=== PATIENT | female | born 1940 | race Caucasian/White ===

== ENCOUNTER → 2016-10-31 | Day surgery (SDC) | payer OTHER, BC ==
[2016-10-06 07:35] VITALS: Ht 156.2 cm; Wt 89.1 kg
[~2016-10-31] VITALS: Ht 156.2 cm; Wt 89.1 kg
[~2016-10-31] MED LIST: 500ML BSS 0.3ML EPI 1:1000PF IRRIG ONE; ACETAMINOPHEN 325 MG TAB PO PRN; AMVISC PLUS 0.8ML SYRINGE INT OCU ONE; ATROPINE SULFATE 0.1 MG/ML 5ML SYR IV PRN; BSS FLUSH ONE; CALCTAB5 PO; EpHEDrine SULFATE INJ 50 MG/ML AMP IV PRN; EpINEphrine INJ 1MG/ML AMP 1 MG/ML AMP ONE; HYDR25TA4 PO; LACTATED RINGER'S 1000ML 500 ML IV SCH; LIDOCAINE 3.5% OPH GEL PER APPLICATION CHARGE ONE; LIDOCAINE HCL 1% MPF 2 ML VIAL ONE; MIDAZOLAM HCL 1 MG/ML 2ML VIAL ONE; MISCTAB88; MULT-845; OCUCOAT 1 ML SOLN IO ONE; ONDANSETRON INJ 2 MG/ML 2 ML VIAL IV PRN; POVIDONE-IODINE OP SOLN 30 ML BTL ONE; PROPARACAINE 0.5% OP SOLN PER DROP CHARGE OPR SCH; TAMO20TA47 PO; TOBRAMYCIN/DEXAMETHASONE OPH OINT PER APPLN CHARGE ONE
[2016-10-31] MEDS: PHENYLEPHRINE HCL 2.5% OP SOLN PER DROP CHARGE OPR SCH ×2 (08:05→08:10)
[2016-10-31] MEDS: TROPICAMIDE 1% OP SOLN PER DROP CHARGE OPR SCH ×2 (08:06→08:11)
[2016-10-31] MEDS: CYCLOPENTOLATE HCL 1% OP SOLN PER DROP CHARGE OPR SCH ×2 (08:07→08:12)
[2016-10-31] MEDS: KETOROLAC 0.5% OP SOLN PER DROP CHARGE OPR SCH ×2 (08:08→08:13)
[2016-10-31] MEDS: GATIFLOXACIN OP SOLN PER DROP CHARGE OPR SCH ×2 (08:09→08:24)
--- NOTE | 2016-10-31 08:45 | History & Physical Bridge - [place] ---
H&P Re-Evaluation Bridge Note: I have examined the patient, reviewed the History & Physical and in the interval since the performance of the History & Physical I have noted the following changes of clinical significance: No changes noted
--- NOTE | 2016-10-31 09:22 | Discharge Instructions-SurgCtr ---
Discharge Instructions Date of Service Oct 31, 2016. Visit Reason for Visit: Cataract Right Eye Discharge Discharge Diagnosis / Problem: cataract Discharge Goals Goal(s): Improve function Activity Recommendations Activity Limitations: per Instructions/Follow-up section Anesthesia . Post Anesthesia Instructions: If you have had General Anesthesia or IV Sedation: * Do not drive today. * Resume driving when surgeon permits. * Do not make important decisions or sign legal documents today. * Call surgeon for: 1. Temperature elevations greater than 101 degrees F. 2. Uncontrollable pain. 3. Excessive bleeding. 4. Persistent nausea and vomiting. 5. Medication intolerance (nausea, vomiting or rash). * For nausea and vomiting use only clear liquids such as: tea, soda, bouillon until nausea subsides, then gradually increase diet as tolerated. * If you have any concerns or questions, call your surgeon's office. If physician is unavailable and it is an emergency, call 911 or go to the nearest emergency room. . Instructions / Follow-Up Instructions / Follow-Up ACTIVITY RECOMMENDATIONS: * No strenuous lifting, jogging or running for 4 days * No swimming or yard work for 1 week. * Limited bending is permitted, such as putting on shoes. RETURN TO SCHOOL/WORK: No work until seen by physician in office. MEDICATIONS: Resume previous medications unless instructed otherwise by your surgeon. This includes eye drops for glaucoma. Zymaxid/Gatifloxacin (de la o cap) - one drop every 2 hours until bedtime Nevanac/Ilevro/Prolensa/Ketorolac (neal cap) - one drop every 4 hours until bedtime Prednisolone/Durezol (white/pink cap, SHAKE WELL) - one drop every 2 hours until bedtime Starting tomorrow - all 3 drops every 4 hours until seen in the office Optive drops - as needed for discomfort SPECIAL CARE INSTRUCTIONS: * Wear eyeshield when sleeping, for four nights. * You may wear your own glasses or sunglasses while awake. * You may read or watch TV * You may shower and wash your face, but be gentle around the eye and pat dry. * Blurry vision and mild irritation are normal. * Call office if pain is more severe or vision becomes dark at . FOLLOW UP VISIT: Follow-up with Dr Benson tomorrow. Diet Recommendations Home Diet: resume previous diet Procedures Procedures Performed: Right Cataract Phacoemulsification With Intraocular Lens Implant Pending Studies Studies pending at discharge: no Medical Emergencies . Who to Call and When: Medical Emergencies: If at any time you feel your situation is an emergency, please call 911 immediately. . Non-Emergent Contact Non-Emergency issues call your: Electronic Heat Seal Operator . . "Provider Documentation" section prepared by Theodore Benson. .
--- NOTE | 2016-10-31 09:22 | [facility] Operative Report ---
Operative Report Date of Service Oct 31, 2016. Operative Report 1. PREOPERATIVE DIAGNOSIS: Cataract of the right eye. 2. POSTOPERATIVE DIAGNOSIS: Same. 3. PROCEDURE: Phacoemulsification with intraocular lens implantation of the right eye. SURGEON: Dr. Theodore Benson. ANESTHESIA: Topical Lidocaine gel, 1% Non- Preserved intracameral Lidocaine, and monitored intravenous sedation. INDICATIONS FOR THE PROCEDURE: The patient is a 76 - year-old female with a history of cataract of the right eye causing significant visual impairment. The details of the proposed procedure were explained to the patient who asked appropriate questions and following discussion of all risks, benefits and alternatives agreed to have the procedure done. 4. OPERATION AND FINDINGS: DESCRIPTION OF PROCEDURE: After informed consent was obtained, the patient was brought to the Operating Room at the [facility]. The patient was placed in a supine position and then the right eye was prepped and draped in the usual sterile fashion for intraocular surgery. A drop of topical Lidocaine gel was placed in the operative eye. A wire lid speculum was then placed in the fornices. A corneal paracentesis was then created temporally. The Non-Preserved Lidocaine was then instilled into the anterior chamber. The anterior chamber was then pressurized with viscoelastic. A 2.0 mm clear corneal incision was then created temporally. A cystotome was inserted into the anterior chamber and used to create a tear in the anterior lens capsule. This capsular tear was then used to create a small flap and the flap was dragged in a counterclockwise direction in order to create a continuous curvilinear capsulorrhexis. Hydrodissection was accomplished with balanced salt solution. Phacoemulsification of the lens nucleus was then performed in a standard iaczav-guu-[id number] technique. The phaco time was 31 seconds with an average power of 13 %. The remaining cortical material was removed using irrigation aspiration. The capsular bag was then filled with viscoelastic. A [employer]ch [employer] Lomb MI60L +22.5 diopters lens was then loaded into the injector and injected into the capsular bag. The remaining viscoelastic was removed with the irrigation aspiration handpiece. The wound was hydrated and then checked and found to be watertight. The intraocular pressure was checked and found to be adequate. The wire lid speculum was removed and the patient's face was cleaned and dried. TobraDex ointment was placed in the inferior fornix. The patient was discharged to the Recovery Room having tolerated the procedure well. There were no complications. The patient will be seen tomorrow in the office for follow-up. I attest to the content of the Intraoperative Record and any orders documented therein. Any exceptions are noted below.
[2016-10-31 09:25] VITALS: TEMP 37
--- NOTE | 2016-10-31 09:36 | Anesthesia Progress Nt - [facility] ---
Anesthesia Post Op Note Date & Time Oct 31, 2016 at 09:36 Vital Signs Pain Intensity: 0 Vital Signs Past 12 Hours Date Time Temp Pulse Resp B/P (MAP) Pulse Ox O2 Delivery O2 Flow Rate FiO2 10/31/16 09:25 37.0 72 16 119/76 (90) 97 Room Air 10/31/16 07:56 36.9 79 16 149/81 (103) 98 Room Air Notes Mental Status: alert / awake / arousable, participated in evaluation Pt Amnestic to Procedure: Yes Nausea / Vomiting: adequately controlled Pain: adequately controlled Airway Patency, RR, SpO2: stable & adequate BP & HR: stable & adequate Hydration State: stable & adequate Anesthetic Complications: no major complications apparent
[2016-10-31 09:47] VITALS: BP 126/81; PULSE 78; O2SAT 97
== END | disposition home or self-care (01) ==
LOC: X.SURG 07:39
PROVIDERS: ATTEND Ophthalmology
DX: H25.9 Unspecified age-related cataract (principal); E78.5 Hyperlipidemia, unspecified; I12.9 Hypertensive chronic kidney disease with stage 1 through stage 4 chronic kidney disease, or unspecified chronic kidney disease; E66.9 Obesity, unspecified; D05.11 Intraductal carcinoma in situ of right breast; N18.3 Chronic kidney disease, stage 3 (moderate); M15.0 Primary generalized (osteo)arthritis; E80.4 Gilbert syndrome

== ENCOUNTER → 2017-01-10 | Outpatient (CLI) | payer OTHER, BC ==
[2016-01-12 13:53] VITALS: BP 129/68; PULSE 83
[~2017-01-10] MED LIST changes: -500ML BSS 0.3ML EPI 1:1000PF IRRIG ONE; -ACETAMINOPHEN 325 MG TAB PO PRN; -AMVISC PLUS 0.8ML SYRINGE INT OCU ONE; -ATROPINE SULFATE 0.1 MG/ML 5ML SYR IV PRN; -BSS FLUSH ONE; -EpHEDrine SULFATE INJ 50 MG/ML AMP IV PRN; -EpINEphrine INJ 1MG/ML AMP 1 MG/ML AMP ONE; -LACTATED RINGER'S 1000ML 500 ML IV SCH; -LIDOCAINE 3.5% OPH GEL PER APPLICATION CHARGE ONE; -LIDOCAINE HCL 1% MPF 2 ML VIAL ONE; -MIDAZOLAM HCL 1 MG/ML 2ML VIAL ONE; -OCUCOAT 1 ML SOLN IO ONE; -ONDANSETRON INJ 2 MG/ML 2 ML VIAL IV PRN; -POVIDONE-IODINE OP SOLN 30 ML BTL ONE; -PROPARACAINE 0.5% OP SOLN PER DROP CHARGE OPR SCH; -TAMO20TA47 PO; +TAMO20TA9 PO; -TOBRAMYCIN/DEXAMETHASONE OPH OINT PER APPLN CHARGE ONE
[2017-01-10 12:53] VITALS: BP 132/74; PULSE 84; TEMP 37.1; O2SAT 95
--- NOTE | 2017-01-10 13:38 | Radiation Oncology Follow-Up ---
Radiation Oncology Follow-Up Date of Visit Jan 10, 2017. 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 Cha is a 76-year-old female with an unknown family history of breast cancer as she is adopted. She has been followed with screening mammograms. On 03/18/2013 patient underwent a bilateral screening mammogram. This prompted a left diagnostic repeat mammogram on 09/08/2013. A small nodule was again noted at the 3 o'clock position located 9 cm from the nipple which was stable compared to the prior images. This was given a BI-RADS Category 3 likely benign with recommended 6 month follow- up. Therefore on 03/09/2014 patient underwent bilateral diagnostic mammograms. The nodule previously seen in the lateral aspect of the left breast was no longer present. Posteriorly in the upper outer right breast however a new group of tightly clustered calcifications was noted 11-12 cm from the nipple at the 10 to 11 o'clock position. No suspicious mass was associated with this. This was given a BI-RADS Category 4 and biopsy was recommended. On March 10 patient underwent a stereotactic biopsy of the right breast. 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 Multiple ducts were noted containing ductal carcinoma in situ measuring in aggregate greater than 1 cm in greatest dimensions. Necrosis was appreciated and was focal and punctate. The architectural pattern was solid and the microcalcifications were focally present. Estrogen receptors were positive and progesterone receptors were positive. Specimen: [id number] and Case: [id number]. Patient went on to have a right breast partial mastectomy and sentinel node biopsy performed on 04/16/2014. The axillary node was negative for metastatic carcinoma on routine sections and immunohistochemical stain for cytokeratin. The lumpectomy specimen revealed residual ductal carcinoma in situ solid with comedo necrosis. Nuclear grade 2 of 3. The tumor extended over an area of 1.5-2 cm. The margins were negative for the DCIS with DCIS extending to within 0.15 cm of the posterior margin and 0.25 cm of the anterior margin. There was no invasive carcinoma seen. Additional margins were taken and were negative for DCIS and invasive carcinoma. Case: [id number]. Stage pTis. Patient was healing well. She is scheduled to see Dr. Wilson on May 25 to discuss the role of adjuvant antiestrogen therapy. We were asked to see her in referral to discuss with her the potential role of radiation as adjuvant therapy. She underwent CT simulation was found to be a good candidate for accelerated partial breast treatment. The radiation was complete 06/09/2014. She received 3850 cGy Interim History She's been doing well over this past year. She is noted no masses or tenderness no change of the axilla. She has no swelling of her arm. She is up- to-date on mammography. She does have some areas of fibrous tissue in the upper outer quadrant. She has been continuing to use diuh-oey-ievcope cocoa butter. She also has small area telangiectasia which has been previously noted and is unchanged from last year. Last year there had been finding of some thickening of the skin especially at the nipple. This is steadily improved. It is no longer seen on her most recent mammography. She continues on tamoxifen and denies side effects. Allergies Coded Allergies: Sulfa Antibiotics (Verified Allergy, Severe, HIVES, 10/31/16) Home Medications Scheduled Calcium (Caltrate), 600 MG PO QAM Hydrochlorothiazide (Hctz), 25 MG PO QAM Misc Natural Products (Osteo Bi-Flex Triple Stre), QAM Multiple Vitamins W/ Minerals (Centrum Silver Adult 50+), QAM Tamoxifen (Nolvadex), 20 MG PO QAM Review of Systems Gastrointestinal: Symptoms: WNL Oral: Symptoms: No Problems Respiratory: Symptoms: WNL Other Respiratory: Residual cough from her recent cold;finished antibiotics; Urinary: Symptoms: WNL Skin: Symptoms: No Problems Breast: Right Upper Arm Measurement: 32.5 Right Mid Arm Measurement: 29.0 Right Wrist Measurement: 17.8 Left Upper Arm Measurement: 32.0 Left Mid Arm Measurement: 28.8 Left Wrist Measurement: 18.0 Arm Dominence: Right Patient Cosmetic Evaluation: Excellent Staff Cosmetic Evalaluation: Excellent Physical Exam Vital Signs Date Time Temp Pulse Resp B/P (MAP) Pulse Ox O2 Delivery O2 Flow Rate FiO2 01/10/17 12:53 37.1 84 16 132/74 95 Pain: Side: Bilateral Pain Location: None Patient Pain Scale: 0 - 10 Initial Pain Intensity: 0.0 Fatigue: None General Appearance: no apparent distress Eyes: normal inspection, EOMI ENT: normal ENT inspection, hearing grossly normal Neck: supple, no adenopathy, thyroid normal Respiratory/Chest: lungs clear, no respiratory distress, no accessory muscle use Breast: Breast examination reveals well-healed incisions of the right breast. There is fibrous tissue in the upper outer quadrant. She has a small amount of telangiectasia over the incision in the upper outer quadrant. There are no masses or tenderness no axillary adenopathy. Using the [place] score cosmesis she has a good outcome. The left breast showed no masses or tenderness and no axillary adenopathy. Cardiovascular: regular rate, rhythm, no gallop, no murmur Abdomen: non tender, soft Extremities: no pedal edema Neurologic/Psychiatric: no motor/sensory deficits, alert, normal mood/affect Skin: warm/dry Additional Studies She had a mammogram at [facility] 10/02/2016. This showed stable right mammogram without finding of malignancy. Annual mammogram and clinical self exams are recommended. BI-RADS Category 3. Assessment & Plan Plan: She is scheduled for bilateral mammography in March. Continue breast self examinations and massage to the area of fibrous tissue. She continues follow-up with Dr. Garcia and her primary care physician. She continues on tamoxifen. We asked her to return to our office in 1 year. She may call if she has any questions or concerns in the interim. Total Time In Follow-Up I spent 20 minutes speaking to the patient performing examination. I spent 15 minutes reviewing information in completing this note. Copy To J Carlos Ware M.D.; Jaki Garcia MD
== END | disposition home or self-care (01) ==
LOC: C.ONC 12:45
PROVIDERS: ATTEND Physician Assistant Medical
DX: Z08 Encounter for follow-up examination after completed treatment for malignant neoplasm (principal); Z92.3 Personal history of irradiation; Z85.3 Personal history of malignant neoplasm of breast